=== PATIENT | female | born 1970 ===

== ENCOUNTER 2016-08-22 10:42 | Emergency (ER) | payer OTHER ==
[2016-08-22 10:59] VITALS: BMI 22.6
[2016-08-22 11:00] VITALS: BP 123/79; PULSE 72; RESP 19; TEMP 98.7; O2SAT 100
[2016-08-22] MEDS ORDERED: Sodium Chloride 0.9% 1,000 ML IV STA (11:37)
--- NOTE | 2016-08-22 11:37 | ED PDOC ---
HPI: Abdomen Time Seen by Provider: 08/22/16 11:21 Chief Complaint (Nursing): Abdominal Pain Chief Complaint (Provider): Epigastric abdominal painx 5 days, dysuria x 2 History Per: Patient History/Exam Limitations: no limitations Onset/Duration Of Symptoms: Days Outside of [place] travel?: No Current Symptoms Are (Timing): Still Present Severity: Moderate Pain Scale Rating Of: 5 Location Of Pain/Discomfort: Epigastric Quality Of Discomfort: Cramping, Burning Associated Symptoms: Loss Of Appetite, Urinary Symptoms (Dysuria ). denies: Fever, Chills, Nausea, Vomiting, Diarrhea, Back Pain, Chest Pain Exacerbating Factors: None Alleviating Factors: None Last Bowel Movement: Today Past Medical History Reviewed: Historical Data, Nursing Documentation, Vital Signs Vital Signs: Last Vital Signs Temp 98.7 F 08/22/16 10:59 Pulse 72 08/22/16 10:59 Resp 19 08/22/16 10:59 BP 123/79 08/22/16 10:59 Pulse Ox 100 08/22/16 11:37 - Medical History PMH: No Chronic Diseases - Surgical History Surgical History: Cholecystectomy - Family History Family History: States: No Known Family Hx - Living Arrangements Living Arrangements: With Family - Social History Current smoker - smoking cessation education provided: No Alcohol: None Drugs: Denies - Home Medications Home Medications: Ambulatory Orders Medication Instructions Recorded Ciprofloxacin [Cipro] 500 mg PO BID #10 tab 08/22/16 Famotidine [Pepcid] 20 mg PO BID #28 tab 08/22/16 - Allergies Allergies/Adverse Reactions: Allergies Allergy/AdvReac Type Severity Reaction Status Date / Time No Known Allergies Allergy Verified 08/22/16 11:30 Review of Systems ROS Statement: Except As Marked, All Systems Reviewed And Found Negative Gastrointestinal: Positive for: Abdominal Pain (Epigastric ) Genitourinary Female: Positive for: Dysuria Physical Exam - Reviewed Nursing Documentation Reviewed: Yes Vital Signs Reviewed: Yes - Physical Exam Appears: Positive for: Well, Non-toxic, No Acute Distress Head Exam: Positive for: ATRAUMATIC, NORMAL INSPECTION, NORMOCEPHALIC Skin: Positive for: Normal Color, Warm, DRY Eye Exam: Positive for: Normal appearance ENT: Positive for: Normal ENT Inspection Neck: Positive for: Normal, Painless ROM Cardiovascular/Chest: Positive for: Regular Rate, Rhythm Respiratory: Positive for: Normal Breath Sounds. Negative for: Accessory Muscle Use, Respiratory Distress Gastrointestinal/Abdominal: Positive for: Bowel Sounds, Soft, Tenderness (Mild epigastric tendernes ). Negative for: Normal Exam, Guarding, Rebound Back: Positive for: Normal Inspection Extremity: Positive for: Normal ROM Neurologic/Psych: Positive for: Alert, Oriented - Laboratory Results Result Diagrams: 08/22/16 12:28 08/22/16 12:28 - ECG O2 Sat by Pulse Oximetry: 100 Medical Decision Making Medical Decision Making: EKG - Normal sinus rhythm. Pt reports feeling better on re-evaluation. Disposition - Clinical Impression Clinical Impression: UTI (urinary tract infection), Gastritis - Patient ED Disposition Is Patient to be Admitted: No Counseled Patient/Family Regarding: Diagnosis, Need For Followup, Rx Given - Disposition Referrals: [facility] [Outside] Disposition: Routine/Home Disposition Time: 14:12 Condition: GOOD Prescriptions: Ciprofloxacin [Cipro] 500 mg PO BID #10 tab Famotidine [Pepcid] 20 mg PO BID #28 tab Instructions: Urinary Tract Infection in Women (ED)
[2016-08-22] MEDS ORDERED: Alum-Mag Hydrox-Simethicone Susp (30 mL) PO STA (11:38)
[2016-08-22] MEDS ORDERED: Alum-Mag Hydrox-Simethicone Susp (30 mL) ONE (12:30)
[2016-08-22 13:01] LABS: ALB/GLOB RATIO 1.3 (1.0-2.1); ALKALINE PHOSPHATASE 91 U/L (38-126); ALT/SGPT 29 U/L (9-52); AST/SGOT 25 U/L (14-36); BILIRUBIN,TOTAL 0.4 mg/dl (0.2-1.3); BLOOD UREA NITROGEN 11 mg/dl (7-17); CALCIUM 9.6 mg/dL (8.4-10.2); CARBON DIOXIDE 27 mmol/L (22-30); CHLORIDE 105 mmol/L (98-107); GFR AFRICAN-AMERICAN > 60; GLUCOSE,RANDOM 87 mg/dL (65-105); POTASSIUM 4.3 MMOL/L (3.6-5.0); SODIUM 140 mmol/l (132-148); TOTAL PROTEIN 8.3 G/DL (6.3-8.2)
[2016-08-22 13:18] LABS: HEMATOCRIT 38.3 % (34.0-47.0); MEAN CELL VOLUME 92.5 fl (81.0-99.0); MEAN CORPUSCULAR HEMOGLOBIN 30.1 pg (27.0-31.0); MEAN CORPUSCULAR HGB CONC 32.5 g/dL (33.0-37.0); RED CELL DISTRIBUTION WIDTH 12.8 % (11.5-14.5); WHITE BLOOD COUNT 8.2 K/uL (4.8-10.8)
[2016-08-22 13:41] LABS: RBC URINE 1 /hpf (0-3); URINE BACTERIA MOD (<OCC); URINE BILIRUBIN NEGATIVE (NEGATIVE); URINE BLOOD NEGATIVE (NEGATIVE); URINE COLOR YELLOW (YELLOW); URINE GLUCOSE (UA) NEG (Normal); URINE KETONE NEGATIVE (NEGATIVE); URINE LEUKOCYTE ESTERASE NEG Leu/uL (Negative); URINE PROTEIN NEGATIVE (NEGATIVE); URINE UROBILINOGEN 0.2-1.0 mg/dL (0.2-1.0); WBC URINE 2 /hpf (0-5)
--- NOTE | 2016-08-23 08:07 | CARD ---
APPROVED REPORT EKG Measurement Heart [id number] <Conclusion> Normal sinus rhythm Normal ECG
== END 2016-08-22 14:23 | disposition home or self-care (01) ==
LOC: H.ER 10:42
DX: N39.0 Urinary tract infection, site not specified (principal); K29.70 Gastritis, unspecified, without bleeding

== ENCOUNTER 2016-09-26 10:26 | Emergency (ER) | payer OTHER ==
[2016-09-26 10:26] VITALS: BMI 22.6
[2016-09-26 10:47] VITALS: RESP 20
--- NOTE | 2016-09-26 10:54 | ED PDOC ---
HPI: General Adult Time Seen by Provider: 09/26/16 10:53 Chief Complaint (Nursing): Lower Extremity Problem/Injury Chief Complaint (Provider): low back pain, leg pain History Per: Patient Additional Complaint(s): 46-year-old female presents to emergency department with lower back pain that radiates down her left leg for 2 weeks. Patient denies fall or trauma. Patient states several years ago she sustained a fall and has had intermittent back pain since then. She denies acute bowel or bladder dysfunction. Patient took Naprosyn 3 days ago and this did not help the pain. She has taken no meds for pain relief since then. Patient able to walk but has pain when doing so. Denies numbness or tingling to left lower extremity. Past Medical History Reviewed: Historical Data, Nursing Documentation, Vital Signs Vital Signs: Last Vital Signs Temp 97.6 F 09/26/16 12:42 Pulse 78 09/26/16 12:42 Resp 20 09/26/16 12:42 BP 126/78 09/26/16 12:42 Pulse Ox 98 09/26/16 12:42 - Medical History PMH: No Chronic Diseases - Surgical History Surgical History: Cholecystectomy, (x 1) - Family History Family History: States: No Known Family Hx - Living Arrangements Living Arrangements: With Family - Social History Current smoker - smoking cessation education provided: No Ex-Smoker (has not smoked in the last 12 months): No Alcohol: None Drugs: Denies - Home Medications Home Medications: Ambulatory Orders Medication Instructions Recorded Ciprofloxacin [Cipro] 500 mg PO BID #10 tab 08/22/16 Famotidine [Pepcid] 20 mg PO BID #28 tab 08/22/16 Cyclobenzaprine [Cyclobenzaprine 10 mg PO TID PRN #15 tab 09/26/16 HCl] Ibuprofen [Motrin Tab] 800 mg PO Q8 PRN #20 tab 09/26/16 Nitrofurantoin Macrocrystals 100 mg PO BID #14 cap 09/26/16 [Macrobid] - Allergies Allergies/Adverse Reactions: Allergies Allergy/AdvReac Type Severity Reaction Status Date / Time No Known Allergies Allergy Verified 08/22/16 11:30 Review of Systems ROS Statement: Except As Marked, All Systems Reviewed And Found Negative Constitutional: Negative for: Fever Gastrointestinal: Negative for: Nausea, Vomiting Genitourinary Female: Negative for: Dysuria, Frequency, Incontinence, Hematuria , Vaginal Discharge, Vaginal Bleeding Musculoskeletal: Positive for: Back Pain, Leg Pain Physical Exam - Reviewed Nursing Documentation Reviewed: Yes Vital Signs Reviewed: Yes - Physical Exam Appears: Positive for: Well, Non-toxic, No Acute Distress Skin: Negative for: Rash Eye Exam: Positive for: Normal appearance, EOMI, PERRL Cardiovascular/Chest: Positive for: Regular Rate, Rhythm Respiratory: Positive for: Normal Breath Sounds Back: Positive for: Vertebral Tenderness (left side lumbar region), Other ( negative bilateral straight leg raise). Negative for: L CVA Tenderness, R CVA Tenderness Extremity: Positive for: Normal ROM. Negative for: Pedal Edema, Calf Tenderness Neurologic/Psych: Positive for: Alert, Oriented - Laboratory Results Urine POC: Negative Urine dip results: Positive for: Blood (small), Nitrate (positive) - ECG O2 Sat by Pulse Oximetry: 100 Pulse Ox Interpretation: Normal - Other Rad L/S Spine x-ray X-Ray: Interpreted by Me, Viewed By Me X-Ray Interpretation: no fx, no dis Medical Decision Making Medical Decision Makin46 year old with back and leg pain Plan: Urine dip test L/S Spine X-ray IM toradol UTI is noted. Patient states pain is improved after Toradol injection. Patient aware of all diagnostic testing results, all questions answered. Prescriptions given for Motrin, Flexeril and Macrobid. Patient was referred to clinic for follow-up. Disposition - Clinical Impression Clinical Impression: Back pain, Leg pain, UTI (urinary tract infection) - Patient ED Disposition Is Patient to be Admitted: No Counseled Patient/Family Regarding: Studies Performed, Diagnosis, Need For Followup, Rx Given - Disposition Referrals: [facility] [Outside] Disposition: Routine/Home Disposition Time: 11:42 Condition: STABLE Additional Instructions: Take rx meds as directed. Follow up in 2-3 days with clinic. Prescriptions: Cyclobenzaprine [Cyclobenzaprine HCl] 10 mg PO TID PRN #15 tab PRN Reason: Muscle Pain Ibuprofen [Motrin Tab] 800 mg PO Q8 PRN #20 tab PRN Reason: Pain, Moderate (4-7) Nitrofurantoin Macrocrystals [Macrobid] 100 mg PO BID #14 cap Instructions: Urinary Tract Infection in Women (DC), Back Pain (ED), Leg Pain ( ED) Print Language: FAROESE Results - Lab Results Lab Results: 09/26/16 11:51 Urine Color Yellow Urine Clarity Slighty-cloudy Urine pH 5.0 Ur Specific [place] 1.014 Urine Protein Negative Urine Glucose (UA) Neg Urine Ketones Negative Urine Blood Small Urine Nitrate Positive H Urine Bilirubin Negative Urine Urobilinogen 0.2-1.0 Ur Leukocyte Esterase Neg Urine RBC (Auto) 3 Urine Microscopic WBC 4 Ur Squamous Epith Cells 1 Urine Bacteria Rare
[2016-09-26 12:00] LABS: SQUAMOUS EPITHIAL 1 /hpf (0-5); URINE BACTERIA RARE (<OCC); URINE BILIRUBIN NEGATIVE (NEGATIVE); URINE BLOOD SMALL (NEGATIVE); URINE CLARITY SLIGHTY-CLOUDY (Clear); URINE COLOR YELLOW (YELLOW); URINE GLUCOSE (UA) NEG (Normal); URINE LEUKOCYTE ESTERASE NEG Leu/uL (Negative); URINE NITRATE POSITIVE (NEGATIVE); URINE PROTEIN NEGATIVE (NEGATIVE); URINE UROBILINOGEN 0.2-1.0 mg/dL (0.2-1.0)
[2016-09-26 12:43] VITALS: BP 126/78; PULSE 78; TEMP 97.6
[2016-09-26 14:05] VITALS: O2SAT 100
--- NOTE | 2016-09-26 14:49 | RAD ---
PROCEDURE: Radiographs of the Lumbar Spine. HISTORY: Low back and left leg pain. No antecedent history of trauma provided. COMPARISON: No prior. FINDINGS: BONES: Normal alignment. No listhesis. No fracture. DISC SPACES: Unremarkable. OTHER FINDINGS: None. IMPRESSION: No significant or acute findings to account for/ related to the clinical presentation. Concordant results with the preliminary interpretation rendered by the emergency department physician procedure.
== END 2016-09-26 12:44 | disposition home or self-care (01) ==
LOC: H.ER 10:26
DX: N39.0 Urinary tract infection, site not specified (principal); M79.605 Pain in left leg; Z87.891 Personal history of nicotine dependence